=== PATIENT | female | born 1950 | race Caucasian/White ===

== ENCOUNTER → 2021-11-05 | Outpatient (CLI) | payer MEDICARE | LOC: MC.RAD 10-31 11:00 | DX: R09.89 Other specified symptoms and signs involving the circulatory and respiratory systems (principal); R59.9 Enlarged lymph nodes, unspecified; Z85.3 Personal history of malignant neoplasm of breast ==

== ENCOUNTER 2022-11-10 14:15 | Outpatient (RCR) | payer MEDICARE, OTHER | END 2022-11-17 | disposition home or self-care (01) | LOC: WSPT | DX: M54.50 Low back pain, unspecified (principal); R26.89 Other abnormalities of gait and mobility ==

== ENCOUNTER 2023-01-14 14:15 | Outpatient (RCR) | payer MEDICARE, OTHER | END 2023-01-15 | disposition home or self-care (01) | LOC: WSPT | DX: M54.50 Low back pain, unspecified (principal); R26.89 Other abnormalities of gait and mobility ==

== ENCOUNTER 2023-02-10 13:00 | Outpatient (RCR) | payer MEDICARE, OTHER | END 2023-02-10 15:00 | disposition home or self-care (01) | LOC: WSPT 13:00 | DX: R26.89 Other abnormalities of gait and mobility (principal); M54.50 Low back pain, unspecified ==